=== PATIENT | female | born 1995 | race Caucasian/White ===

== ENCOUNTER → 2022-04-24 | Outpatient (CLI) | payer OTHER ==
[~2022-04-24] MED LIST: PROHANCE 279.3MG/ML 15ML VIAL ONE
== END ==
LOC: M PLAIMG 09:16
PROVIDERS: ATTEND Physician Assistant
DX: D36.16 Benign neoplasm of peripheral nerves and autonomic nervous system of pelvis (principal)
CPT/HCPCS: 72197; A9576

== ENCOUNTER 2023-05-13 02:02 | Emergency (ER) | payer OTHER ==
[~2023-05-13] VITALS: Ht 167.6 cm; Wt 84.1 kg
[~2023-05-13 02:02] MED LIST changes: +CEPH25SS PO; +NORT50CA PO; -PROHANCE 279.3MG/ML 15ML VIAL ONE
[2023-05-13 02:03] VITALS: BP 125/76; TEMP 97.5; O2SAT 97
[2023-05-13 02:35] LABS: BASO % 0.2 % (0.0-1.0); EOS # 0.1 10^3/uL (0.0-0.5); EOS % 1.5 % (0.0-3.0); HEMATOCRIT 34.6 % (36.0-47.0); HEMOGLOBIN 11.8 g/dl (12.0-15.5); LYMPH # 1.8 10^3/uL (1.5-5.0); LYMPH % 21.9 % (24.0-44.0); MEAN CORPUSCULAR HEMOGLOBIN 30.9 pg (27.0-33.0); MEAN CORPUSCULAR HGB CONC 34.1 g/dl (32.0-36.5); MEAN CORPUSCULAR VOLUME 90.6 fl (80.0-96.0); MONO # 0.8 10^3/uL (0.0-0.8); MONO % 9.6 % (2.0-8.0); NEUTROPHILS # 5.3 10^3/uL (1.5-8.5); NEUTROPHILS % 66.4 % (36.0-66.0); PLATELET COUNT, AUTOMATED 187 10^3/uL (150-450); RED BLOOD COUNT 3.82 10^6/uL (4.00-5.40)
[2023-05-13 03:04] LABS: LIPASE 25 U/L (12-53)
[2023-05-13 03:05] LABS: CPK CREATINE PHOSPHOKINASE 33 U/L (34-145)
[2023-05-13 03:06] LABS: ALBUMIN 2.6 G/DL (3.2-5.2); ALKALINE PHOSPHATASE 81 U/L (46-116); ALT/SGPT 26 U/L (7.0-40); AST/SGOT 14 U/L (<34); BILIRUBIN,DIRECT < 0.1 MG/DL (<0.4); BILIRUBIN,TOTAL 0.2 MG/DL (0.3-1.2); BLOOD UREA NITROGEN 8 MG/DL (9-23); CALCIUM LEVEL 8.3 MG/DL (8.5-10.1); CARBON DIOXIDE LEVEL 24 MMOL/L (20-31); CHLORIDE LEVEL 106 MMOL/L (98-107); CK-MB VALUE MASS < 1.0 NG/ML (<3.6); CREATININE FOR GFR 0.59 MG/DL (0.55-1.30); GLOMERULAR FILTRATION RATE > 60.0 (>60); GLUCOSE, FASTING 99 MG/DL (60-100); MB/CK RELATIVE INDEX 3.03 (< OR =4); POTASSIUM SERUM 3.9 MMOL/L (3.5-5.1); SODIUM LEVEL 138 MMOL/L (136-145); TOTAL PROTEIN 5.8 G/DL (5.7-8.2)
== END 2023-05-13 05:17 | disposition left against medical advice (07) ==
LOC: M ED 02:02
DX: Z53.21 Procedure and treatment not carried out due to patient leaving prior to being seen by health care provider (principal)

== ENCOUNTER 2023-06-12 06:06 | Outpatient (CLI) | payer OTHER ==
[~2023-06-12] VITALS: Ht 167.6 cm; Wt 90.9 kg
== END 2023-06-12 07:13 | disposition home or self-care (01) ==
LOC: M LDO 06:06
PROVIDERS: ATTEND Obstetrics & Gynecology
DX: O36.8130 Decreased fetal movements, third trimester, not applicable or unspecified (principal); Z3A.29 29 weeks gestation of pregnancy
CPT/HCPCS: 59025; 76815; G0463

== ENCOUNTER 2023-08-14 07:42 | Inpatient (IN) | payer OTHER ==
[2023-08-14] VITALS (41 sets, daily range): BP systolic 95–155; BP diastolic 51–89; O2SAT 98–99
[~2023-08-14] VITALS: Ht 167.6 cm; Wt 96.3 kg
[2023-08-14] MEDS ORDERED: PENICILLIN G POTASSIUM 5 MU IV 5 MU in D5W MINI-BAG PLUS 100 ML IV STA (07:57)
[2023-08-14] MEDS ORDERED: LACTATED RINGER'S 1000 ML IV STA (07:57)
[2023-08-14] MEDS ORDERED: TRANEXAMIC ACID INJection 1,000 MG in NS 100 ML IV PRN (08:00)
[2023-08-14] MEDS ORDERED: LR 1,000 ML IV SCH ×2 (08:00→08:45)
[2023-08-14] MEDS ORDERED: CARBOPROST TROMETHAMINE 250 MCG/ML AMP IM PRN (08:00)
[2023-08-14] MEDS ORDERED: LIDOCAINE 1% MDV 20ML VIAL INFIL PRN (08:00)
[2023-08-14] MEDS ORDERED: METHYLERGONOVINE MALEATE 0.2MG/ML 1ML VIAL IM PRN (08:00)
[2023-08-14] MEDS ORDERED: OXYTOCIN DRIP 30 UNITS in IV 1 EA IV PRN ×4 (08:00)
[2023-08-14] MEDS ORDERED: TUMS500C PO (08:02)
[2023-08-14] MEDS ORDERED: EVEN500C3 PO (08:02)
[2023-08-14] MEDS ORDERED: COLA100C5 PO (08:02)
[2023-08-14] MEDS ORDERED: HOME MED LIST COMPLETE! XX SCH (08:25)
[2023-08-14 08:40] LABS: HEMATOCRIT 36.4 % (36.0-47.0); HEMOGLOBIN 12.6 g/dl (12.0-15.5); MEAN CORPUSCULAR HEMOGLOBIN 30.7 pg (27.0-33.0); MEAN CORPUSCULAR HGB CONC 34.6 g/dl (32.0-36.5); MEAN CORPUSCULAR VOLUME 88.8 fl (80.0-96.0); PLATELET COUNT, AUTOMATED 218 10^3/uL (150-450); WHITE BLOOD COUNT 13.7 10^3/uL (4.0-10.0)
[2023-08-14] MEDS ORDERED: OXYTOCIN DRIP 30 UNITS in IV 1 EA IV SCH (08:45)
[2023-08-14] MEDS: PEN G POT 3,000,000 UNIT/50 ML 3,000,000 UNIT in IV 1 EA IV SCH ×3 (13:13→21:23)
[2023-08-14] MEDS ORDERED: LR 500 ML IV PRN (15:55)
[2023-08-14] MEDS ORDERED: diphenhydrAMINE 50MG/ML VIAL IV PRN (15:55)
[2023-08-14] MEDS ORDERED: EPIDURAL/PCA KEYS XX PRN (15:55)
[2023-08-14] MEDS ORDERED: NALOXONE INJ 0.4MG/1ML VIAL IV PRN (15:55)
[2023-08-14] MEDS ORDERED: ePHEDrine SULFATE 25 MG/5 ML(5MG/ML) SYRINGE IVP PRN (15:55)
[2023-08-14] MEDS ORDERED: ONDANSETRON 4MG 2ML VIAL IV PRN (15:55)
[2023-08-14] MEDS: FENTANYL/ROPIVACAINE/NACL BAG 100 ML EPIDURAL SCH (16:03)
[2023-08-14] MEDS ORDERED: FAMOTIDINE 20 MG TAB PO ONE (21:05)
[2023-08-15] VITALS (13 sets, daily range): BP systolic 112–148; BP diastolic 58–87; O2SAT 97–98
[2023-08-15] MEDS: PEN G POT 3,000,000 UNIT/50 ML 3,000,000 UNIT in IV 1 EA IV SCH (02:48)
[2023-08-15] MEDS: FENTANYL/ROPIVACAINE/NACL BAG 100 ML EPIDURAL SCH (03:02)
[2023-08-15] MEDS ORDERED: METHYLERGONOVINE MALEATE 0.2 MG TAB PO PRN (04:35)
[2023-08-15] MEDS ORDERED: RHOGAM 300MCG (1500IU) INJ IM SCH (04:35)
[2023-08-15] MEDS ORDERED: ANUSOL HC CREAM 30GM TOP PRN (04:35)
[2023-08-15] MEDS ORDERED: MOM 30ML SUSPENSION UDC PO PRN (04:35)
[2023-08-15] MEDS: IBUPROFEN 800 MG TAB PO PRN ×2 (07:24→16:53)
[2023-08-15] MEDS: FERROUS SULFATE 325MG TAB PO SCH (08:10)
[2023-08-15] MEDS: PRENATAL VITAMINS CHEWABLE TABLET PO SCH (08:10)
[2023-08-15] MEDS: MIRALAX *UNIT DOSE* 17GM PACKET PO PRN ×2 (08:10→16:58)
[2023-08-15] MEDS: DOCUSATE SODIUM 100MG CAPSULE PO PRN (11:18)
[2023-08-15] MEDS: ACETAMINOPHEN 500 MG TAB PO PRN (11:19)
[2023-08-15] MEDS: DIBUCAINE 1% OINTMENT 30GM TOP PRN (11:19)
[2023-08-16] MEDS: ACETAMINOPHEN 500 MG TAB PO PRN ×2 (00:19→10:07)
[2023-08-16] MEDS: IBUPROFEN 800 MG TAB PO PRN ×2 (04:15→14:14)
[2023-08-16 06:00] VITALS: BP 125/67; O2SAT 97
[2023-08-16] MEDS ORDERED: IBUP80TA PO (08:12)
[2023-08-16] MEDS ORDERED: ACET-683 PO (08:12)
[2023-08-16] MEDS: PRENATAL VITAMINS CHEWABLE TABLET PO SCH (10:06)
[2023-08-16] MEDS: DOCUSATE SODIUM 100MG CAPSULE PO PRN (10:06)
[2023-08-16] MEDS: FERROUS SULFATE 325MG TAB PO SCH (10:06)
[2023-08-16] MEDS: MIRALAX *UNIT DOSE* 17GM PACKET PO PRN (10:07)
[2023-08-16] MEDS: DIBUCAINE 1% OINTMENT 30GM TOP PRN (10:07)
[2023-08-17] MEDS ORDERED: MEASLES,MUMPS,RUBELLA VACCINE INJ (MMR-II) SC.IMMUN ONE (09:00)
== END 2023-08-16 14:30 | disposition home or self-care (01) | DRG 807 ==
LOC: M LDI 07:42 → M OBS 08-15 08:55
PROVIDERS: ADMIT Advanced Practice Midwife; ATTEND Obstetrics & Gynecology
PROC: 10E0XZZ Delivery of Products of Conception, External Approach (ICD-10-PCS; principal; 2023-08-15)
PROC: 0KQM0ZZ Repair Perineum Muscle, Open Approach (ICD-10-PCS; 2023-08-15)
DX: O42.02 Full-term premature rupture of membranes, onset of labor within 24 hours of rupture (principal); Z37.0 Single live birth; Z3A.41 41 weeks gestation of pregnancy; O99.824 Streptococcus B carrier state complicating childbirth; O77.0 Labor and delivery complicated by meconium in amniotic fluid; O48.0 Post-term pregnancy; O70.1 Second degree perineal laceration during delivery

== ENCOUNTER → 2024-03-08 | Outpatient (CLI) | payer OTHER ==
[~2024-03-08] MED LIST changes: +ACET-683 PO; +COLA100C5 PO; +EVEN500C7 PO; +IBUP80TA PO; +PROHANCE 279.3MG/ML 15ML VIAL ONE; +TUMS500C PO
== END ==
LOC: M PLAIMG 08:40
PROVIDERS: ATTEND Physician Assistant
DX: D49.89 Neoplasm of unspecified behavior of other specified sites (principal)

== ENCOUNTER 2024-05-10 11:59 | Day surgery (SDC) | payer OTHER ==
[~2024-05-10] VITALS: Ht 167.6 cm; Wt 74.3 kg
[~2024-05-10 11:59] MED LIST changes: +COQ1200C3 PO; +MAGN400C PO; +MIRA3350 PO; +NAPR220C14 PO; -PROHANCE 279.3MG/ML 15ML VIAL ONE; +RIBO400T PO
[2024-05-10] MEDS: NS 1,000 ML IV ONE (12:22)
[2024-05-10] MEDS ORDERED: ACET325C5 PO (12:23)
[2024-05-10] MEDS ORDERED: propofoL 200 MG/20 ML VIAL As Ordered ONE (13:40)
[2024-05-10 13:50] VITALS: TEMP 97.2
[2024-05-10 14:05] VITALS: BP 105/62; O2SAT 97
== END 2024-05-10 14:15 | disposition home or self-care (01) ==
LOC: M OPP 11:59
PROVIDERS: ATTEND Internal Medicine Gastroenterology
DX: K64.4 Residual hemorrhoidal skin tags (principal); K59.04 Chronic idiopathic constipation; K62.5 Hemorrhage of anus and rectum; Z79.1 Long term (current) use of non-steroidal anti-inflammatories (NSAID); Z79.899 Other long term (current) drug therapy

== ENCOUNTER → 2024-05-22 | Outpatient (REF) | payer OTHER ==
[~2024-05-22] MED LIST changes: +ACET325C5 PO
== END ==
LOC: M LAB REF 19:20
PROVIDERS: ATTEND Physician Assistant
DX: K12.0 Recurrent oral aphthae (principal)